=== PATIENT | female | born 1995 ===

== ENCOUNTER 2018-09-27 19:10 | Inpatient (IN) | payer OTHER ==
[2018-09-27 20:09] VITALS: BMI 28.5
[2018-09-27] MEDS ORDERED: Lactated Ringer's 1,000 ML IV ONE (20:11)
[2018-09-27 20:24] LABS: BASO # 0.2 K/uL (0.0-0.2); BASO % 1.9 % (0.0-2.0); EOS # 0.1 K/uL (0.0-0.7); EOS % 0.6 % (0.0-4.0); HEMOGLOBIN 10.8 g/dL (11.0-16.0); LYMPH # 1.4 K/uL (1.0-4.3); MEAN CELL VOLUME 87.5 fL (81.0-99.0); MEAN CORPUSCULAR HEMOGLOBIN 28.5 pg (27.0-31.0); MEAN CORPUSCULAR HGB CONC 32.6 g/dL (33.0-37.0); MEAN PLATELET VOLUME 10.1 fL (7.2-11.7); MONO # 0.5 K/uL (0.0-0.8); MONO % 4.4 % (0.0-10.0); NEUT # 8.9 K/uL (1.8-7.0); NEUT % 80.1 % (50.0-75.0); NRBC % 0.1 % (0.0-2.0); RBC 3.8 Mil/uL (3.80-5.20); RED CELL DISTRIBUTION WIDTH 14.1 % (11.5-14.5); WHITE BLOOD COUNT 11.1 K/uL (4.8-10.8)
[2018-09-27 20:28] LABS: SQUAMOUS EPITHIAL 6 /hpf (0-5); URINE BACTERIA RARE (<OCC); URINE BILIRUBIN NEGATIVE (NEGATIVE); URINE BLOOD NEGATIVE (NEGATIVE); URINE CLARITY Hazy (Clear); URINE COLOR Yellow (YELLOW); URINE GLUCOSE (UA) NORMAL (Normal); URINE LEUKOCYTE ESTERASE NEG Leu/uL (Negative); URINE PROTEIN NEGATIVE (NEGATIVE); URINE UROBILINOGEN NORMAL mg/dL (0.2-1.0)
--- NOTE | 2018-09-27 20:30 | OBADHP ---
Datetime: 09/27/2018 19:59 Admit Comment, IP Provider: This is a 23 y/o at 40.5 wks presnetd to L_D for IOL. pt has no com plaints today. Received PNC at [facility] and with Dr. Guajardo. PMH: [place] PSH: Trish POBH: Primigravid Social H: ALL: NKDA Labs: O positive, RPR NR, hep B sAg negative, GBS- Positive, HIV- Un known, UDS positive for pedrito binoids VE: /-2 posterior TOCO: irr ctx EFM: 140 Cat 1 A/P: 23 y/o at 40.[address] Guajardo service Labs incuding HIV IVF Cervidil placed Cervidil GBS prophylaxis in acitve labor Abdomen - PN: Normal Lungs - PN: Normal Heart - PN: Normal Presentation-Admit: Vertex FHR - Baseline A Provider: 140 Membranes, Provider: Intact Contraction Comments Provider: Irregular Comments, ACOG Physical Exam: ABD: Soft, NT Erxt: No calf tenderness Gestation - Est Wks by US: 40.5 IP Chief Complaint: Scheduled induction of labor NICHD Variability Prov Fetus A: Moderate 6-25bpm NICHD Accel Fetus A IP Provider: 15X15 FHR Category Provider Fetus A: Category I NICHD Decel Fetus A IP Provider: None Dilatation, Provider: 1 Effacement, Provider: 50 Station, Provider: -2 Genitourinary Exam: Normal EGA AdmitDate IP: 40.5 IP Adm Impression: Term, intrauterine IP Admit Plan: Initiate labor induction protocol
[2018-09-27 20:37] LABS: ALB/GLOB RATIO 1.2 (1.0-2.1); ALBUMIN 3.7 g/dL (3.5-5.0); ALT/SGPT 16 U/L (9-52); AST/SGOT 24 U/L (14-36); BLOOD UREA NITROGEN 13 mg/dL (7-17); CALCIUM 9.6 mg/dl (8.6-10.4); GFR NON-AFRICAN AMERICAN > 60
[2018-09-27 20:40] LABS: BARBITURATES, UR NEGATIVE (NEGATIVE); BENZODIAZEPINES, UR NEGATIVE (NEGATIVE); OPIATES, UR NEGATIVE (NEGATIVE); PHENCYCLIDINE, UR NEGATIVE (NEGATIVE)
[2018-09-28] MEDS ORDERED: Lactated Ringer's 1,000 ML IV SCH (03:45)
[2018-09-28] MEDS ORDERED: Penicillin G Potassium 5 MU in Dextrose 5% In Water 50 ML IV ONE (04:00)
[2018-09-28] MEDS ORDERED: Penicillin G 5 Million Unit Vial IVPB ONE (04:03)
[2018-09-28] MEDS ORDERED: Nalbuphine HCL 10 mg/ml Ampule IVP ONE (04:09)
[2018-09-28] MEDS ORDERED: Oxytocin 30 UNIT 30 UNITS/500 ML BAG IV SCH (07:45)
[2018-09-28] MEDS ORDERED: Penicillin G Potassium 2.5 MU in Dextrose 5% In Water 50 ML IV SCH (08:00)
[2018-09-28] MEDS ORDERED: Bupivacaine HCl/FentaNYL Cit 100 ML EPI ONE (08:17)
--- NOTE | 2018-09-28 08:23 | OBADHP ---
Datetime: 09/28/2018 08:22 Dilatation, Provider: 3 Datetime: 09/27/2018 19:59 IP Hx Assessment: The History has been Reviewed and is Current EGA AdmitDate IP: 40.5 IP Adm Impression: Term, intrauterine ; Postterm, intrauterine ; Intact Membranes IP Admit Plan: Admit to unit; Initiate labor induction protocol
--- NOTE | 2018-09-28 08:25 | OBPN ---
Datetime: 09/28/2018 08:22 IP Progress Impression: Normal progression of labor IP Procedures: Sterile Vag Exam IP Progress Plan: Continue present management Contraction Comments Provider: q1-3 FHR - Baseline A Provider: 130 IP Progress Note Comment: pt was examined at bed side ve /-2 will stt pitocin antcipate NICHD Accel Fetus A IP Provider: 15X15 FHR Category Provider Fetus A: Category I NICHD Variability Prov Fetus A: Moderate 6-25bpm Dilatation, Provider: 3 Effacement, Provider: 80 Station, Provider: -2 Datetime: 09/27/2018 19:59 Membranes, Provider: Intact Gestation - Est Wks by US: 40.5 Presentation-Admit: Vertex NICHD Decel Fetus A IP Provider: None
[2018-09-28] MEDS ORDERED: Oxytocin 30 UNIT 30 UNITS/500 ML BAG IV ONE (09:31)
--- NOTE | 2018-09-28 12:12 | OBPN ---
Datetime: 09/28/2018 11:54 IP Progress Impression: Normal progression of labor IP Procedures: Sterile Vag Exam IP Progress Plan: Continue present management Contraction Comments Provider: q1-4 FHR - Baseline A Provider: 130 IP Progress Note Comment: pt was examined bed side ve fd/100/+1 plan nstaet pushing anticipate Vital Signs Provider: Reviewed; Within Normal Limits NICHD Accel Fetus A IP Provider: 15X15 FHR Category Provider Fetus A: Category I NICHD Variability Prov Fetus A: Moderate 6-25bpm Dilatation, Provider: 10 Effacement, Provider: 100 Station, Provider: 1
[2018-09-28] MEDS ORDERED: Oxycodone/Acetaminophen 5/325 mg Tab PO PRN (12:43)
[2018-09-28] MEDS: Benzocaine/Menthol 20%-0.5% Topical Spray (60 ml) TOP PRN (17:59)
--- NOTE | 2018-09-29 06:43 | OBPPN ---
Datetime: 09/29/2018 06:41 PP Pain Prov: Within normal limits PP Nausea Prov: Denies PP Flatus Prov: Yes PP Abdomen/Uterus Prov: Normal PP Lochia Prov: Normal PP Extremities Prov: Normal PP Impression Prov: Normal progression PP Plan Prov: Continue present management PP Progress Note Prov: pt was examined at bed side, pain under control, no n/v, toleating di,voidin g ppd#1 cont pp care cont pain ma encourage ambulation Vital Signs Provider PP: Reviewed; Within Normal Limits
[2018-09-29 07:33] LABS: BASO % 0.3 % (0.0-2.0); EOS # 0.1 K/uL (0.0-0.7); EOS % 0.6 % (0.0-4.0); HEMOGLOBIN 10.1 g/dL (11.0-16.0); LYMPH # 2.3 K/uL (1.0-4.3); LYMPH % 18.5 % (20.0-40.0); MEAN CELL VOLUME 88.2 fL (81.0-99.0); MEAN CORPUSCULAR HEMOGLOBIN 29.3 pg (27.0-31.0); MEAN CORPUSCULAR HGB CONC 33.2 g/dL (33.0-37.0); MEAN PLATELET VOLUME 10.2 fL (7.2-11.7); MONO % 7.6 % (0.0-10.0); NEUT # 9.2 K/uL (1.8-7.0); RBC 3.45 Mil/uL (3.80-5.20); WHITE BLOOD COUNT 12.6 K/uL (4.8-10.8)
[2018-09-29 09:28] VITALS: RESP 18; O2SAT 98
[2018-09-29] MEDS: Multiple Vitamins Tab PO SCH (10:13)
[2018-09-29] MEDS: Benzocaine/Menthol 20%-0.5% Topical Spray (60 ml) TOP PRN ×2 (10:19→17:25)
[2018-09-30 08:07] VITALS: BP 108/65; PULSE 81; TEMP 98.8
[2018-09-30] MEDS: Multiple Vitamins Tab PO SCH (10:17)
[2018-09-30] MEDS: Benzocaine/Menthol 20%-0.5% Topical Spray (60 ml) TOP PRN (10:21)
[2018-09-30] MEDS ORDERED: Influenza Vaccine 60 mcg/0.5 mL SYR (4YR UP) IM ONE (11:46)
[2018-09-30] MEDS ORDERED: Tdap Vaccine 0.5 ml Vial (10-64 yrs) IM ONE (11:46)
== END 2018-09-30 13:50 | disposition home or self-care (01) | DRG 373 ==
LOC: C.EROB 19:10 → C.4D 20:08 → C.4M 09-28 15:45
PROVIDERS: ADMIT Obstetrics & Gynecology; ATTEND Obstetrics & Gynecology
PROC: 3E0P7VZ Introduction of Hormone into Female Reproductive, Via Natural or Artificial Opening (ICD-10-PCS; 2018-09-27)
PROC: 10E0XZZ Delivery of Products of Conception, External Approach (ICD-10-PCS; principal; 2018-09-28)
DX: O48.0 Post-term pregnancy (principal); Z3A.40 40 weeks gestation of pregnancy; Z37.0 Single live birth